=== PATIENT | male | born 1970 | race Caucasian/White ===

== ENCOUNTER 2023-10-26 12:48 | Emergency (ER) | payer MEDICAID ==
[~2023-10-26] VITALS: Ht 170.2 cm; Wt 75.0 kg
[2023-10-26 12:57] VITALS: BP 143/83; PULSE 76; RESP 16; TEMP 98.4; O2SAT 96
== END 2023-10-26 16:24 | disposition left against medical advice (07) ==
LOC: ER 12:48
DX: R10.9 Unspecified abdominal pain (principal); Z53.21 Procedure and treatment not carried out due to patient leaving prior to being seen by health care provider
CPT/HCPCS: 99283